=== PATIENT | male | born 1995 | race Caucasian/White ===

== ENCOUNTER 2019-08-30 00:46 | Emergency (ER) | payer BC, OTHER, SELFPAY ==
[~2019-08-30] VITALS: Ht 180.3 cm; Wt 136.1 kg
[2019-08-30 00:47] VITALS: Ht 180.3 cm; Wt 136.1 kg
[2019-08-30 02:38] VITALS: BP 117/78
== END 2019-08-30 02:38 | disposition home or self-care (01) ==
LOC: ED 00:46
DX: R06.02 Shortness of breath (principal); R07.89 Other chest pain; R05 Cough; J45.909 Unspecified asthma, uncomplicated; Z90.49 Acquired absence of other specified parts of digestive tract
CPT/HCPCS: Q0092